=== PATIENT | female | born 1975 | race Caucasian/White ===

== ENCOUNTER → 2018-11-16 | Outpatient (CLI) | payer OTHER ==
[~2018-11-16] MED LIST: IBUP-1221 PO; LORA10TA75 PO; PROG100C16 PO
[2018-11-16 14:07] LABS: MICROSCOPIC NOT IND
[2018-11-16 14:09] LABS: CULTURE INDICATED? NO
== END | disposition home or self-care (01) ==
LOC: STAR 13:14
PROVIDERS: ATTEND Surgery
DX: Z01.818 Encounter for other preprocedural examination (principal)
CPT/HCPCS: 81003

== ENCOUNTER 2018-11-20 10:17 | Day surgery (SDC) | payer BC, OTHER ==
[2018-11-16 13:44] VITALS: BP 114/78
[~2018-11-20] VITALS: Ht 165.1 cm; Wt 58.9 kg
[~2018-11-20 10:17] MED LIST changes: +BUPIVACAINE/PF-EPI 0.5% 1:200K ONE; +FENTANYL PF 250 MCG/5ML ONE; +MIDAZOLAM 1 MG/ML, 2ML ONE
[2018-11-20 10:45] VITALS: BP 114/78
[2018-11-20] MEDS ORDERED: LACTATED RINGERS 1,000 ML IV SCH (11:06)
[2018-11-20 11:23] LABS: HCG UR SG 1.014 (1.003-1.030)
[2018-11-20] MEDS ORDERED: DEXAMETHASONE 4 MG/ML, 1ML ONE (12:26)
[2018-11-20] MEDS ORDERED: ONDANSETRON 2MG/ML, 2ML ONE (12:26)
[2018-11-20] MEDS ORDERED: ROCURONIUM 10MG/ML,5ML ONE (12:26)
[2018-11-20] MEDS ORDERED: CEFAZOLIN 1,000 MG ONE (12:26)
[2018-11-20] MEDS ORDERED: SUCCINYLCHOLINE 20 MG/ML, 10ML ONE (12:26)
[2018-11-20] MEDS ORDERED: PROPOFOL 50 ML ONE (12:34)
[2018-11-20] MEDS ORDERED: ACETAMINOPHEN 325 MG TABLET PO PRN (13:00)
[2018-11-20] MEDS ORDERED: ONDANSETRON 2MG/ML, 2ML IV PRN (13:00)
[2018-11-20] MEDS ORDERED: LORazepam 2 MG/ML, 1ML IVPush PRN (13:00)
[2018-11-20] MEDS ORDERED: HYDROmorphone 2 MG/ML, 1ML IVPush PRN (13:00)
[2018-11-20] MEDS ORDERED: ONDANSETRON ODT 8 MG PO PRN (13:00)
[2018-11-20] MEDS ORDERED: PROMETHAZINE 25 MG/ML, 1ML IV PRN (13:00)
[2018-11-20] MEDS ORDERED: ACETAMINOPHEN 650 MG/20.3 ML UDC ONE (13:16)
[2018-11-20] MEDS ORDERED: FENTANYL PF 100 MCG/2ML ONE ×2 (13:17→13:58)
[2018-11-20] MEDS ORDERED: OXYcodone 5 MG/5 ML ORAL.SOL UDC ONE ×2 (13:17→13:58)
[2018-11-20] MEDS: FENTANYL PF 100 MCG/2ML IV PRN ×3 (13:21→13:59)
[2018-11-20] MEDS: OXYcodone 5 MG/5 ML ORAL.SOL UDC PO PRN ×2 (13:23→14:00)
== END 2018-11-20 16:25 | disposition home or self-care (01) ==
LOC: OUT 10:17
PROVIDERS: ATTEND Surgery
DX: D34 Benign neoplasm of thyroid gland (principal); Z88.1 Allergy status to other antibiotic agents; J45.909 Unspecified asthma, uncomplicated; E78.00 Pure hypercholesterolemia, unspecified; Z98.890 Other specified postprocedural states; Z72.89 Other problems related to lifestyle
CPT/HCPCS: 60200; 81025; 88305; C1760; J0330; J0690; J1100; J2250; J2405; J2704; J3010; J7120

== ENCOUNTER → 2020-10-13 | Outpatient (CLI) | payer OTHER ==
[~2020-10-13] MED LIST changes: -BUPIVACAINE/PF-EPI 0.5% 1:200K ONE; -FENTANYL PF 250 MCG/5ML ONE; -MIDAZOLAM 1 MG/ML, 2ML ONE
== END | disposition home or self-care (01) ==
LOC: CFH 07:46
PROVIDERS: ATTEND Family Medicine
DX: Z12.31 Encounter for screening mammogram for malignant neoplasm of breast (principal)
CPT/HCPCS: 77063; 77067